=== PATIENT | male | born 1975 | race Two or more races ===

== ENCOUNTER 2019-05-06 16:13 | Emergency (ER) | payer OTHER ==
[~2019-05-06] VITALS: Ht 170.2 cm; Wt 89.8 kg
--- NOTE | 2019-05-06 16:18 | NUR ---
FRANKI RN: PT IN BATHROOM AT THIS TIME.
[2019-05-06 18:37] LABS: BASOPHILS # (AUTO) 0.03 x10^3/uL (0-0.1); BASOPHILS % (AUTO) 0 % (0-1); EOSINOPHILS # (AUTO) 0.18 x10^3/uL (0-0.4); EOSINOPHILS % (AUTO) 2 % (1-7); LYMPHOCYTES # (AUTO) 2.88 x10^3/uL (1-3.4); LYMPHOCYTES % (AUTO) 34 % (22-44); MD NO; MEAN CORPUSCULAR HGB CONC 33.3 g/dL (33.2-36.2); MEAN CORPUSCULAR VOLUME 93.1 fL (81-97); MEAN PLATELET VOLUME 8.2 fL (7.4-10.4); MONOCYTES # (AUTO) 0.83 x10^3/uL (0.2-0.8); MONOCYTES % (AUTO) 10 % (2-9); NEUTROPHILS # (AUTO) 4.56 x10^3/uL (1.8-6.8); NEUTROPHILS % (AUTO) 54 % (42-75); PLATELET COUNT 251 x10^3/uL (130-400); RED BLOOD COUNT 4.38 x10^6/uL (4.38-5.82); RED CELL DISTRIBUTION WIDTH 13.1 % (9.4-14.8)
--- NOTE | 2019-05-06 18:37 | NUR ---
INFORMATION SECURITY ANALYST: Patient to room from lobby at this time.
[2019-05-06 18:51] LABS: ALBUMIN 3.8 g/dL (3.4-5.0); ANION GAP 6 mmol/L (5-15); CALCIUM 9.2 mg/dL (8.5-10.1); CHLORIDE 102 mmol/L (98-107)
[2019-05-06] MEDS ORDERED: METF500T17 PO (18:53)
[2019-05-06 18:54] LABS: ALANINE AMINOTRANSFERASE 36 U/L (12-78); ALKALINE PHOSPHATASE 96 U/L (45-117); BILIRUBIN,TOTAL 0.6 mg/dL (0.2-1.0); TOTAL PROTEIN 8.4 g/dL (6.4-8.2)
[2019-05-06] MEDS ORDERED: ATOR-2 PO (18:54)
[2019-05-06] MEDS ORDERED: FLUO20CA19 PO (18:54)
[2019-05-06 19:25] LABS: MICROSCOPIC NOT IND
[2019-05-06 19:32] LABS: CULTURE INDICATED? NO
--- NOTE | 2019-05-06 19:44 | NUR ---
PT RESTING IN ROOM. NO ACUTE DISTRESS NOTED. VS STABLE. WILL CONTINUE TO MONITOR.
[2019-05-06 20:24] VITALS: BP 125/72
== END 2019-05-06 20:26 | disposition home or self-care (01) ==
LOC: ED 19:06
DX: S39.011A Strain of muscle, fascia and tendon of abdomen, initial encounter (principal); R11.2 Nausea with vomiting, unspecified; X58.XXXA Exposure to other specified factors, initial encounter; Y93.89 Activity, other specified; Y92.89 Other specified places as the place of occurrence of the external cause; Y99.8 Other external cause status
CPT/HCPCS: 36415; 80053; 81003; 83690; 85025; 99283